=== PATIENT | female | born 1985 | race African-American/Black ===

== ENCOUNTER 2018-06-13 12:18 | Emergency (ER) | payer MEDICAID ==
[~2018-06-13] VITALS: Ht 152.4 cm; Wt 67.1 kg
[2018-06-13 12:40] VITALS: BP 106/67
--- NOTE | 2018-06-13 12:54 | Emergency Room Report ---
History of Present Illness General Chief Complaint: Pain Source: Patient (Luis Angel Nuñez) Present Illness HPI 32-year-old female patient presents ER complaining of left wrist and elbow pain status post trip and fall injury earlier this morning. Reports that she was going to run at 4 AM when she tripped and "tumbled". Denies hitting her head or loss consciousness. Reports she landed on her right shoulder, elbow, wrist, denies solution. Reports right-hand dominant. Reports pain in right wrist. Reports abrasions on right shoulder and left knee. Denies left knee swelling or pain. Reports she took an ibuprofen after injury and a Tylenol #3 two hours ago. denies fever, chest pain, shortness of breath. Reports decreased range of motion with movement of wrist. Reports able to move shoulder, reports mild pain with elbow movement. (Luis Angel Nuñez) Allergies: Coded Allergies: No Known Allergies (Unverified , 06/13/18) Patient History Past Medical History: see triage record Last Menstrual Period: 05/24/18 Now: No Reviewed Nursing Documentation: PMH: Agreed; PSxH: Agreed (Luis Angel Nuñez) Nursing Documentation-PMH Past Medical History: No Stated History (Luis Angel Nuñez) Review of Systems All Other Systems: negative except mentioned in HPI (Luis Angel Nuñez) Physical Exam Vital Signs Date Time Temp Pulse Resp B/P (MAP) Pulse Ox O2 Delivery O2 Flow Rate FiO2 06/13/18 12:38 98.3 81 18 106/67 98.2 Sp02 EP Interpretation: reviewed, normal General Appearance: well appearing, no apparent distress, alert, GCS 15, non- toxic Head: normocephalic, atraumatic Eyes: bilateral eye normal inspection, bilateral eye PERRL ENT: hearing grossly normal, normal pharynx, no angioedema, normal voice, uvula midline, moist mucus membranes Neck: full range of motion Respiratory: lungs clear, normal breath sounds, no rhonchi, no respiratory distress, no accessory muscle use, no wheezing, speaking full sentences Cardiovascular #1: regular rate, rhythm, no edema Cardiovascular #2: 2+ radial (R), 2+ radial (L) Musculoskeletal: back normal, digits/nails normal, gait/station normal, normal range of motion - right shoulder, right elbow; no laxity with varus or valgus stress of knee, non-tender, decreased range of motion - and right wrist secondary to pain, swelling, other - NVI, able to make a fist, sensation to light touch intact; deformity of right wrist; negative sulcus sign, negative skin tenting, tender - right snuffbox Neurologic: alert, oriented x3, responsive, motor strength/tone normal, sensory intact Psychiatric: mood/affect normal Skin: no rash, abrasions - right shoulder and left knee: multiple approximately 1 cm abrasions, no surrounding erythema or edema, no or drainage (Luis Angel Nuñez) Medical Decision Making PA Attestation Dr. Mejia is my supervising Physician whom patient management has been discussed with. (Luis Angel Nuñez) Diagnostic Impression: Primary Impression: Distal radius fracture, right ER Course Pt. presents to the ED c/o right upper extremity pain. Ddx considered but are not limited to fracture, sprain, strain, contusion, dislocation. No erythema, no warmth to touch, no fever, nontoxic appearing, low suspicion for septic joint. Vital signs: are WNL, pt. is afebrile Ordered X-ray and pain medication. ER COURSE Provided with pain medication and ice the ER. bacitracin applied to abrasions. No signs of infection, does not require oral antibiotics. Keep clean and dry, apply Neosporin to help reduce appearance of scars. An X-ray of the right wrist shows distal radius fracture per the preliminary reading. An X-ray of the right elbow shows no acute fracture per the preliminary reading. informed patient of results. Instructed to follow-up with primary care and get referral to bilingual customer service specialist. Thumb spica splint was applied to the right wrist and was checked afterwards by me showing good alignment and support with distal neurovascular functioning intact. Patient instructed on RICE method: rest, ice, compression, elevation. Patient instructed on rest, ice and heat. Patient instructed to be NWB Patient able to ambulate independently without difficulty. Contact information for orthopedic urgent care provided, follow-up with urgent care if unable to followup with primary care provider and get referral to bilingual customer service specialist. Followup with primary care provider. Discuss referral to ortho/pain management/ PT as needed. Discuss further imaging with MRI/CT as needed. DISCHARGE: -Rx provided for [place] for pain symptoms. SE drowsiness, do not take prior to drinking, driving, operating heavy machinery. At this time pt. is stable for d/c to home. Patient is resting comfortably, in no acute distress, nontoxic appearing, talking without difficulty. Will provide printed patient care instructions, and any necessary prescriptions. Patient instructed to follow with primary care provider in 3 - 5 days and to request further follow-up as needed. Care plan and follow up instructions have been discussed with the patient prior to discharge. Take medications as directed. Patient questions asked and answered. Patient reports understanding and agreement to treatment plan. ER precautions given, patient instructed to return to ER immediately for any new or worsening of symptoms. - Please note that this Emergency Department Report was dictated using [employer] advocate technology software, occasionally this can lead to erroneous entry secondary to interpretation by the dictation equipment. (Luis Angel Nuñez P.A.) Other X-Ray Diagnostic Results Other X-Ray Diagnostic Results #1: X-Ray ordered: right wrist # of Views/Limited Vs Complete: 3 View Indication: Pain EP Interpretation: Yes PA Xray: Interpretation reviewed, by supervising MD, and agrees with findings. Interpretation: no dislocation, no soft tissue swelling, other - distal radius fracture Impression: Other - distal radius fracture PA Scribe Text Jae Nuñez PA-C Other X-Ray Diagnostic Results #2: X-Ray ordered: right elbow # of Views/Limited Vs Complete: 3 View Indication: Pain EP Interpretation: Yes PA Xray: Interpretation reviewed, by supervising MD, and agrees with findings. Interpretation: no dislocation, no soft tissue swelling, no fractures Impression: No acute disease PA Scribe Text Jae Nuñez PA-C (Luis Angel Nuñez P.A.) Other X-Ray Diagnostic Results #1: Electronically Signed by: Scribe documentation reviewed by me and is accurate, Chandana Mejia MD Other X-Ray Diagnostic Results #2: Electronically Signed by: Scribe documentation reviewed by me and is accurate, Chandana Mejia MD Other X-Ray Diagnostic Results #3: Electronically Signed by: Scribe documentation reviewed by me and is accurate, Chandana Mejia MD (Chandana Mejia M.D.) Last Vital Signs Date Time Temp Pulse Resp B/P (MAP) Pulse Ox O2 Delivery O2 Flow Rate FiO2 06/13/18 12:38 98.3 81 18 106/67 98.2 (Luis Angel Nuñez) Disposition: HOME, SELF-CARE Condition: Stable Scripts Hydrocodone Bit/Acetaminophen 5-325* (NORCO 5-325*) 1 Each Tablet 1 TAB ORAL Q6H PRN for For Pain, #10 TAB 0 Refills Prov: Luis Angel Nuñez 06/13/18 Patient Instructions: Abrasion, [id number], Elbow Contusion, [id number], Shoulder Pain, [id number], Wrist Fracture, [id number] Additional Instructions: Patient instructed to follow up with primary care provider and discuss further referral to orthopedics. Patient instructed on RICE method: rest, ice, compression, elevation. Patient instructed to NWB. Take medications as directed. SE drowsiness, do not take medication prior to drinking, driving, operating heavy machinery. Patient questions asked and answered. ER precautions given, patient instructed to return to ER immediately for any new or worsening of symptoms. Luis Angel Nuñez Jun 13, 2018 12:54 Chandana Mejia M.D. Jun 17, 2018 17:56
[2018-06-13] MEDS ORDERED: Bacitracin Oint UD TOPIC ONE (13:00)
[2018-06-13] MEDS ORDERED: NORCO 5-325 TA1 EACH ORAL (14:07)
[2018-06-13 14:37] VITALS: BP 105/63
--- NOTE | 2018-06-13 14:46 | Diagnostic Imaging Report ---
Indications:Elbow pain Technique: Three or 4 views of the right elbow Comparison: None Findings:No evidence of joint effusion. No acute fractures. No dislocations. The joint spaces are preserved Impression: Negative
--- NOTE | 2018-06-13 14:49 | Diagnostic Imaging Report ---
Clinical Indication:Wrist pain, trauma Technique: 3 views of the right wrist Comparison: None Findings: There is a minimally displaced fracture of the anterolateral corner of the distal radius. This extends into the articular surface. No associated ulnar fracture. No carpal or metacarpal fracture demonstrated. Impression: Positive for distal radial fracture. This agrees with the conclusions scribed by the ED physician in the electronic medical record
== END 2018-06-13 14:40 | disposition home or self-care (01) ==
LOC: EMR 12:57
DX: S52.501A Unspecified fracture of the lower end of right radius, initial encounter for closed fracture (principal); S40.211A Abrasion of right shoulder, initial encounter; S80.212A Abrasion, left knee, initial encounter; W18.40XA Slipping, tripping and stumbling without falling, unspecified, initial encounter; Y93.02 Activity, running; Y92.9 Unspecified place or not applicable
CPT/HCPCS: 29125; 99284

== ENCOUNTER 2018-12-18 17:16 | Emergency (ER) | payer MEDICAID ==
[~2018-12-18] VITALS: Ht 152.4 cm; Wt 63.5 kg
[~2018-12-18 17:16] MED LIST: IBUPROFEN600 MG ORAL; NITROFURANTOIN100 M2 ORAL; NKM; NORCO 5-325 TA1 EACH ORAL; ONDANSETRON ODT4 MG BC
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
[2018-12-18 17:22] VITALS: BP 120/77
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
[2018-12-18] MEDS ORDERED: LIDODERM700 M1 TOPIC (18:18)
[2018-12-18] MEDS ORDERED: ROBAXIN-750750 MG PO (18:18)
[2018-12-18] MEDS ORDERED: IBUPROFEN600 MG ORAL (18:18)
[2018-12-18 18:36] VITALS: BP 125/80
--- NOTE | 2018-12-18 18:37 | NUR ---
ER DISCHARGE NOTE: Patient is cleared to be discharged per ERMD, pt is aox4, on room air, with stable vital signs. pt was given dc and prescription instructions, pt was able to verbalize understanding, pt id band removed without complications. pt is able to ambulate with steady gait. pt took all belongings.
== END 2018-12-18 18:37 | disposition home or self-care (01) ==
LOC: EMR 17:57
DX: S29.012A Strain of muscle and tendon of back wall of thorax, initial encounter (principal); S39.012A Strain of muscle, fascia and tendon of lower back, initial encounter; V43.52XA Car driver injured in collision with other type car in traffic accident, initial encounter; Y92.410 Unspecified street and highway as the place of occurrence of the external cause
CPT/HCPCS: 99282

== ENCOUNTER 2020-03-25 15:37 | Emergency (ER) | payer MEDICAID ==
[~2020-03-25] VITALS: Ht 160 cm; Wt 77.1 kg
[~2020-03-25 15:37] MED LIST changes: +LIDODERM700 M1 TOPIC; +ROBAXIN-750750 MG PO
--- NOTE | 2020-03-25 16:10 | NUR ---
ED Nurse Note: Pt ambulated to ED d/t vaginal discharge. Pt is 7 weeks ; states 'when I wipe, it's red-pinkish'; reports no pain or urinary problem. Pt's VSS, NAD noted. Placed on bed, will continue to monitor.
--- NOTE | 2020-03-25 16:29 | NUR ---
ED Nurse Note: US tech at bedside.
[2020-03-25 16:34] LABS: BASOPHILS % (AUTO) 1.4 % (0.0-2.0); EOSINOPHILS % (AUTO) 0.7 % (0.0-3.0); HEMATOCRIT 38.1 % (37.0-47.0); HEMOGLOBIN 11.7 G/DL (12.0-16.0); LYMPHOCYTES % (AUTO) 24.8 % (20.0-45.0); MEAN CORPUSCULAR VOLUME 95 FL (80-99); MONOCYTES % (AUTO) 11.4 % (1.0-10.0); NEUTROPHILS % (AUTO) 61.6 % (45.0-75.0); PLATELET COUNT 300 K/UL (150-450); RED BLOOD COUNT 4.02 M/UL (4.20-5.40); RED CELL DISTRIBUTION WIDTH 12.9 % (11.6-14.8); WHITE BLOOD COUNT 9.2 K/UL (4.8-10.8)
[2020-03-25 16:57] LABS: APPEARANCE,URINE SLIGHTLY CLOUDY; BILIRUBIN, URINE NEGATIVE (NEGATIVE); GLUCOSE, URINE (UA) NEGATIVE (NEGATIVE); KETONES,URINE 1+ (NEGATIVE); LEUKOCYTE ESTERASE ,URINE 1+ (NEGATIVE); NITRITE,URINE NEGATIVE (NEGATIVE); PH,URINE 5 (4.5-8.0); PROTEIN,URINE 2+ (NEGATIVE); UROBILINOGEN,URINE 1 MG/DL (0.0-1.0)
[2020-03-25 16:59] LABS: COLOR,URINE YELLOW
[2020-03-25 17:00] LABS: ANION GAP 10 mmol/L (5-15); BLOOD UREA NITROGEN 5 mg/dL (7-18); CALCIUM 8.8 MG/DL (8.5-10.1); CARBON DIOXIDE 28 MMOL/L (21-32); CHLORIDE 104 MMOL/L (98-107); CREATININE 1.1 MG/DL (0.55-1.30); POTASSIUM 3.4 MMOL/L (3.5-5.1); SODIUM 142 MMOL/L (136-145)
[2020-03-25 17:05] LABS: ALANINE AMINOTRANSFERASE 31 U/L (12-78); ALBUMIN 3.5 G/DL (3.4-5.0); ALBUMIN/GLOBULIN RATIO 0.9 (1.0-2.7); ALKALINE PHOSPHATASE 97 U/L (46-116); ASPARTATE AMINO TRANSFERASE 24 U/L (15-37); BILIRUBIN,TOTAL 0.3 MG/DL (0.2-1.0)
--- NOTE | 2020-03-25 17:34 | Diagnostic Imaging Report ---
EXAM: US First Trimester , Transabdominal and Transvaginal CLINICAL HISTORY: PAIN TECHNIQUE: Real-time transabdominal and transvaginal obstetrical ultrasound of the maternal pelvis and a first trimester with image documentation. Transvaginal imaging was used for better evaluation of the fetus and adnexa. COMPARISON: No relevant prior studies available. FINDINGS: Gestation: No IUP. Placenta/amniotic fluid: Cannot be adequately evaluated due to the early gestational age. Uterus/cervix: Retroflexed uterus. 1 cm hypoechoic focus to the posterior uterine corpus. Favor small fibroid, potentially chronic. Ovaries: Unremarkable. No mass. Free fluid: No free fluid. IMPRESSION: No IUP. Cannot exclude ectopic , but no suspicious adnexal mass. Retroflexed uterus. 1 cm hypoechoic focus to the posterior uterine corpus. Favor fibroid.
--- NOTE | 2020-03-25 17:46 | Emergency Room Report ---
History of Present Illness General Chief Complaint: Complications Source: Patient Present Illness HPI 34-year-old female who is A1 and claims to be 7 weeks here complaining of 1 day of vaginal spotting. Denies any abdominal pain or cramping. Reported vaginal spotting started after she was being sexually active. Denies any profuse amount of bleeding or clotting. Denies any syncope , nausea vomiting, headache and dizziness. Reports that she just found out that she is a week ago. Denies any alcohol intake, marijuana use or smoking. Is not taking any medication. Has not started vitamins either. Patient has a first PNEUMATIC DRUM SANDER visit next week. Patient stable, afebrile, and in no distress. Allergies: Coded Allergies: No Known Allergies (Unverified , 06/13/18) COVID-19 Screening Contact w/high risk pt: No Recent Travel to affected area: No Experienced COVID-19 symptoms?: No COVID-19 Testing performed PETROLEUM INSPECTOR SUPERVISOR: No Patient History Past Medical History: see triage record Past Surgical History: none Pertinent Family History: none Last Menstrual Period: 02/04/20 Now: Yes : 5 Para: 2 Immunizations: UTD Reviewed Nursing Documentation: PMH: Agreed; PSxH: Agreed Nursing Documentation-PMH Past Medical History: No Stated History Review of Systems All Other Systems: negative except mentioned in HPI Physical Exam Vital Signs Date Time Temp Pulse Resp B/P (MAP) Pulse Ox O2 Delivery O2 Flow Rate FiO2 03/25/20 16:00 98.2 92 15 111/68 (82) 98 Room Air Sp02 EP Interpretation: reviewed, normal General Appearance: no apparent distress, alert, GCS 15, non-toxic Head: normocephalic, atraumatic Eyes: bilateral eye normal inspection, bilateral eye PERRL ENT: hearing grossly normal, normal pharynx, no angioedema, normal voice Neck: full range of motion, supple/symm/no masses Respiratory: chest non-tender, lungs clear, normal breath sounds, speaking full sentences Cardiovascular #1: regular rate, rhythm, no edema Gastrointestinal: normal bowel sounds, non tender, soft, non-distended, no guarding, no rebound Rectal: deferred Genitourinary: no CVA tenderness Musculoskeletal: back normal Neurologic: alert, motor strength/tone normal, oriented x3, sensory intact, responsive, speech normal Psychiatric: judgement/insight normal, memory normal, mood/affect normal, no suicidal/homicidal ideation Skin: no rash Lymphatic: no adenopathy Medical Decision Making PA Attestation All my diagnosis and treatment plans were reviewed ad discussed with my supervising physician Dr. Ibarra Diagnostic Impression: Primary Impression: Spotting during in first trimester Additional Impression: UTI (urinary tract infection) during ER Course 34-year-old female who is A1 and claims to be 7 weeks here complaining of 1 day of vaginal spotting. Denies any abdominal pain or cramping. Reported vaginal spotting started after she was being sexually active. Denies any profuse amount of bleeding or clotting. Denies any syncope , nausea vomiting, headache and dizziness. Reports that she just found out that she is a week ago. Denies any alcohol intake, marijuana use or smoking. Is not taking any medication. Has not started vitamins either. Patient has a first PNEUMATIC DRUM SANDER visit next week. Patient stable, afebrile, and in no distress. Ddx considered but are not limited to: Spotting during , ectopic , abdominal pain during , threatened , spontaneous Vital signs: are WNL, pt. is afebrile H&PE are most consistent with: Spotting during , UTI urine ORDERS: CBC, CMP, UA, beta-hCG, type and screen, OB ultrasound, vitamins, Keflex ED INTERVENTIONS: None required at this time. DISCHARGE: At this time pt. is stable for d/c to home. Will provide printed patient care instructions, and any necessary prescriptions. Care plan and follow up instructions have been discussed with the patient prior to discharge. Patient to follow-up with PNEUMATIC DRUM SANDER in 48 to 72 hours medical history as directed , present symptoms return to the emergency room CT/MRI/US Diagnostic Results CT/MRI/US Diagnostic Results : Imaging Test Ordered: OB US Impression IMPRESSION: No IUP. Cannot exclude ectopic , but no suspicious adnexal mass. Retroflexed uterus. 1 cm hypoechoic focus to the posterior uterine corpus. Favor fibroid. Last Vital Signs Date Time Temp Pulse Resp B/P (MAP) Pulse Ox O2 Delivery O2 Flow Rate FiO2 03/25/20 16:00 98.2 92 15 111/68 (82) 98 Room Air Disposition: HOME, SELF-CARE Condition: Stable Scripts Vits W-Ca,Fe,Fa(<1MG) ( VITAMINS) 1 Each Tablet 1 EACH PO DAILY, #30 TAB Prov: Bucky Olivier 03/25/20 Cephalexin* (KEFLEX*) 500 Mg Capsule 500 MG ORAL EVERY 12 HOURS for 7 Days, #14 CAP 0 Refills Prov: Bucky Olivier 03/25/20 Patient Instructions: Urinary Tract Infection, [id number], Vaginal Bleeding During , First Trimester Additional Instructions: Take medication as directed, follow-up with PNEUMATIC DRUM SANDER, if worsening symptoms return to the emergency room Bucky Olivier Mar 25, 2020 17:46
[2020-03-25] MEDS ORDERED: PRENATAL VITAM1 EACH PO (17:49)
[2020-03-25] MEDS ORDERED: CEPHALEXIN500 MG ORAL (17:49)
[2020-03-25 18:00] VITALS: BP 111/68
--- NOTE | 2020-03-25 18:00 | NUR ---
ER DISCHARGE NOTE: Patient is cleared to be discharged per ERPA, pt is aox4, on room air, with stable vital signs. pt was given dc and prescription instructions, pt was able to verbalize understanding, pt id band and iv site removed without complications. pt is able to ambulate with steady gait. pt took all belongings.
== END 2020-03-25 18:00 | disposition home or self-care (01) ==
LOC: EMR 17:43
DX: O26.851 Spotting complicating pregnancy, first trimester (principal); O23.41 Unspecified infection of urinary tract in pregnancy, first trimester; Z3A.01 Less than 8 weeks gestation of pregnancy
CPT/HCPCS: 36415; 76801; 76817; 80053; 81003; 84702; 84703; 85025; 86850; 86900; 86901; 87086; Z7502; 99284

== ENCOUNTER 2020-05-31 13:19 | Emergency (ER) | payer MEDICAID ==
[~2020-05-31] VITALS: Ht 152.4 cm; Wt 77.1 kg
[~2020-05-31 13:19] MED LIST changes: +CEPHALEXIN500 MG ORAL; +PRENATAL VITAM1 EACH PO
[2020-05-31 13:23] VITALS: BP 112/75
--- NOTE | 2020-05-31 13:30 | NUR ---
ED Nurse Note: patient walked into ED from home c/o vainal discharge and discomfort, reports white foul discharge. patient also reports concern for exposure to STD. patient is alert awake x4 ambulatory breathing unlabored and even speaking in full sentences.
--- NOTE | 2020-05-31 13:40 | NUR ---
ED Nurse Note: urine sent to lab
[2020-05-31] MEDS ORDERED: Lidocaine 1% MPF 10mg/ml 5ml INJ ONE (13:45)
[2020-05-31] MEDS ORDERED: Azithromycin 250mg tab ORAL ONE (13:45)
[2020-05-31 13:56] LABS: APPEARANCE,URINE CLEAR; BILIRUBIN, URINE NEGATIVE (NEGATIVE); COLOR,URINE PALE YELLOW; GLUCOSE, URINE (UA) NEGATIVE (NEGATIVE); KETONES,URINE 1+ (NEGATIVE); LEUKOCYTE ESTERASE ,URINE NEGATIVE (NEGATIVE); NITRITE,URINE NEGATIVE (NEGATIVE); PH,URINE 5 (4.5-8.0); PROTEIN,URINE NEGATIVE (NEGATIVE); UROBILINOGEN,URINE NORMAL MG/DL (0.0-1.0)
--- NOTE | 2020-05-31 14:22 | Emergency Room Report ---
History of Present Illness General Chief Complaint: Vaginal Source: Patient Present Illness HPI 34 YO female presents to the ED c/o contact with possible STI. Pt. reports unprotected intercourse and then onset of thick white vaginal d/c 3 days after .Pt. denies pain. She Denies and states she had a miscarriage two months ago. Pt. is requesting STD treatment. She denies recent abx use. She denies dysuria, hematuria or frequency. Pt. denies abdominal pain or tenderness. She reports fish-like odor to vaginal d/c. Pt. denies N/V/F/C. She denies genital lesions, sores or rashes. Pt. also states she is prone to yeast infections after taking abx. Pt. denies adnexal pain or tenderness. She denies swollen tender lymph nodes or joint pain. Allergies: Coded Allergies: No Known Allergies (Unverified , 06/13/18) COVID-19 Screening Contact w/high risk pt: No Recent Travel to affected area: No Experienced COVID-19 symptoms?: No COVID-19 Testing performed MARKET RISK SPECIALIST: No Patient History Past Medical History: see triage record Past Surgical History: none Pertinent Family History: none Last Menstrual Period: 05/10 Now: No Reviewed Nursing Documentation: PMH: Agreed; PSxH: Agreed Nursing Documentation-PMH Past Medical History: No Stated History Review of Systems All Other Systems: negative except mentioned in HPI Physical Exam Vital Signs Date Time Temp Pulse Resp B/P (MAP) Pulse Ox O2 Delivery O2 Flow Rate FiO2 05/31/20 13:23 98.6 91 16 112/75 98 Room Air Sp02 EP Interpretation: reviewed, normal General Appearance: no apparent distress, alert, GCS 15, non-toxic Head: normocephalic, atraumatic Eyes: bilateral eye normal inspection, bilateral eye PERRL ENT: hearing grossly normal, normal voice Neck: full range of motion Respiratory: chest non-tender, lungs clear, normal breath sounds, speaking full sentences Cardiovascular #1: regular rate, rhythm Gastrointestinal: normal bowel sounds, non tender, soft Rectal: deferred Genitourinary: normal inspection, no CVA tenderness, deferred - Pelvic exam deferred by pt. Musculoskeletal: back normal, normal range of motion, gait/station normal, non- tender Neurologic: alert, oriented x3, sensory intact, responsive, speech normal Psychiatric: judgement/insight normal Lymphatic: no adenopathy Medical Decision Making PA Attestation Dr. Conrad Is my supervising Physician whom patient management has been discussed with. Diagnostic Impression: Primary Impression: Vaginitis Qualified Codes: N76.0 - Acute vaginitis Additional Impression: Contact with or exposure to venereal diseases ER Course 34 YO female presents to the ED c/o contact with possible STI. Pt. reports unprotected intercourse and then onset of thick white vaginal d/c 3 days after .Pt. denies pain. She Denies and states she had a miscarriage two months ago. Pt. is requesting STD treatment. She denies recent abx use. She denies dysuria, hematuria or frequency. Pt. denies abdominal pain or tenderness. She reports fish-like odor to vaginal d/c. Pt. denies N/V/F/C. She denies genital lesions, sores or rashes. Pt. also states she is prone to yeast infections after taking abx. Pt. denies adnexal pain or tenderness. She denies swollen tender lymph nodes or joint pain. Ddx considered but are not limited to UTi , STI, G & C, trichomonas, Vaginitis , cervicitis, gland cyst or cellulitis. Vital signs: are WNL, pt. is afebrile H&PE are most consistent with vaginitis and contact with or exposure to STD. ORDERS: - UA: unremarkable -Urine : ED INTERVENTIONS: -250mg Rocephin IM -1g Azithromycin. ( pt. vomited) Urine preg neg so will give doxy. d/w pt. to wait until all antibiotics are completed before taking Diflucan DISCHARGE: At this time pt. is stable for d/c to home. Will provide printed patient care instructions, and any necessary prescriptions. Care plan and follow up instructions have been discussed with the patient prior to discharge. Labs Test 05/31/20 13:28 Urine Color Pale yellow Urine Appearance Clear Urine pH 5 (4.5-8.0) Urine Specific [place] 1.015 (1.005-1.035) Urine Protein Negative (NEGATIVE) Urine Glucose (UA) Negative (NEGATIVE) Urine Ketones 1+ (NEGATIVE) Urine Blood 4+ (NEGATIVE) Urine Nitrite Negative (NEGATIVE) Urine Bilirubin Negative (NEGATIVE) Urine Urobilinogen Normal MG/DL (0.0-1.0) Urine Leukocyte Esterase Negative (NEGATIVE) Urine RBC 5-10 /HPF (0 - 2) Urine WBC 0-2 /HPF (0 - 2) Urine Squamous Epithelial Cells Few /LPF (NONE/OCC) Urine Bacteria Few /HPF (NONE) Last Vital Signs Date Time Temp Pulse Resp B/P (MAP) Pulse Ox O2 Delivery O2 Flow Rate FiO2 05/31/20 13:23 98.6 91 16 112/75 (87) 98 Room Air Disposition: HOME, SELF-CARE Condition: Stable Scripts Doxycycline Hyclate* (VIBRAMYCIN*) 100 Mg Capsule 100 MG ORAL EVERY 12 HOURS for 7 Days, #14 CAP 0 Refills Prov: Fiordaliza Self 05/31/20 Fluconazole (DIFLUCAN) 150 Mg Tablet 150 MG PO ONCE, #1 TAB Prov: Fiordaliza Self 05/31/20 Metronidazole* (FLAGYL*) 500 Mg Tablet 500 MG ORAL BID for 7 Days, #14 TAB Prov: Fiordaliza Self 05/31/20 Referrals: [facility]ERR[facility] (PCP) Patient Instructions: Vaginitis, [id number] Additional Instructions: Take medications as directed. Follow up with a Primary Care Provider in 3-5 days, even if your symptoms have resolved. Return sooner to ED if new symptoms occur, or current symptoms become worse. - Please note that this Emergency Department Report was dictated using [employer] jewelry technology software, occasionally this can lead to erroneous entry secondary to interpretation by the dictation equipment. Fiordaliza Self May 31, 2020 14:22
[2020-05-31 14:30] VITALS: BP 112/75
[2020-05-31] MEDS ORDERED: METRONIDAZOLE500 MG ORAL (14:32)
[2020-05-31] MEDS ORDERED: DIFLUCAN150 MG PO (14:32)
[2020-05-31] MEDS ORDERED: VIBRAMYCIN100 MG ORAL (14:48)
--- NOTE | 2020-05-31 15:00 | NUR ---
ER DISCHARGE NOTE: Patient is cleared to be discharged per COURTNEY RUIZ, pt is aox4, on room air, with stable vital signs. pt was given dc and prescription instructions, pt was able to verbalize understanding, pt id band removed without complications. pt is able to ambulate with steady gait. pt took all belongings.
[2020-05-31 15:26] VITALS: BP 112/75
== END 2020-05-31 15:00 | disposition home or self-care (01) ==
LOC: EMR 13:48
DX: N76.0 Acute vaginitis (principal); Z20.2 Contact with and (suspected) exposure to infections with a predominantly sexual mode of transmission
CPT/HCPCS: 81003; 81025; 96372; J0696; Q0144; Z7502; 99283

== ENCOUNTER 2020-07-21 21:49 | Emergency (ER) | payer MEDICAID ==
[~2020-07-21] VITALS: Ht 152.4 cm; Wt 81.6 kg
[~2020-07-21 21:49] MED LIST changes: +DIFLUCAN150 MG PO; +METRONIDAZOLE500 MG ORAL; +VIBRAMYCIN100 MG ORAL
--- NOTE | 2020-07-21 22:03 | Emergency Room Report ---
History of Present Illness General Chief Complaint: Lower Extremity Injury Source: Patient Present Illness [facility] This is a 34-year-old female with no past medical history. She presents with chief complaint of right foot pain. She injured her foot 3 weeks ago. She says she was walking and misstepped on the curb and hit her on the foot. Since then is been hurting some. Now that she is on the foot more with walking it hurts more. Pain is to the bottom and the dorsum of the foot. No ankle pain. Pain is 7 out of 10. Worse with walking. Better with rest. No other injury. Allergies: Coded Allergies: No Known Allergies (Unverified , 06/13/18) COVID-19 Screening Contact w/high risk pt: No Recent Travel to affected area: No Experienced COVID-19 symptoms?: No COVID-19 Testing performed HEALTHCARE CORPORATE ACCOUNT DIRECTOR: No Patient History Past Medical History: see triage record, old chart reviewed Past Surgical History: none Pertinent Family History: none Social History: Denies: smoking Last Menstrual Period: 05/2020 Now: No Immunizations: other Reviewed Nursing Documentation: PMH: Agreed; PSxH: Agreed Nursing Documentation-PMH Past Medical History: No Stated History Review of Systems Eye: Denies: eye pain, blurred vision ENT: Denies: ear pain, nose congestion, throat swelling Respiratory: Denies: cough, shortness of breath Cardiovascular: Denies: chest pain, palpitations Gastrointestinal: Denies: abdominal pain, diarrhea, nausea, vomiting Musculoskeletal: Reports: joint pain; Denies: back pain Skin: Denies: rash Neurological: Denies: headache, numbness Endocrine: Denies: increased thirst, increased urine Hematologic/Lymphatic: Denies: easy bruising All Other Systems: negative except mentioned in HPI Physical Exam Vital Signs Date Time Temp Pulse Resp B/P (MAP) Pulse Ox O2 Delivery O2 Flow Rate FiO2 07/21/20 21:54 98.4 89 16 104/66 (79) 98 Room Air Vitals normal Sp02 EP Interpretation: reviewed, normal General Appearance: well appearing, no apparent distress, alert Head: normocephalic, atraumatic Eyes: bilateral eye PERRL, bilateral eye EOMI ENT: hearing grossly normal, normal pharynx Neck: full range of motion, supple, no meningismus Respiratory: chest non-tender, lungs clear, normal breath sounds Cardiovascular #1: regular rate, rhythm, no murmur Gastrointestinal: normal bowel sounds, non tender, no mass, no organomegaly, no bruit, non-distended Musculoskeletal: back normal, normal range of motion, gait/station normal, other - Right foot: Tenderness to the arch and dorsum of the midfoot. Ankle is nontender. Pulse normal. Psychiatric: mood/affect normal Medical Decision Making Diagnostic Impression: Primary Impression: Right foot sprain Qualified Codes: S93.601A - Unspecified sprain of right foot, initial encounter ER Course Patient presents with injury to the foot. No fracture or dislocation. Will discharge home. Other X-Ray Diagnostic Results Other X-Ray Diagnostic Results : X-Ray ordered: Right foot x-rays # of Views/Limited Vs Complete: 3 View Indication: Pain EP Interpretation: Yes Interpretation: no dislocation, no soft tissue swelling, no fractures Impression: No acute disease Electronically Signed by: Jay Elias MD Last Vital Signs Date Time Temp Pulse Resp B/P (MAP) Pulse Ox O2 Delivery O2 Flow Rate FiO2 07/21/20 21:54 98.4 89 16 104/66 (79) 98 Room Air Status: improved Disposition: HOME, SELF-CARE Condition: Stable Scripts Ibuprofen* (MOTRIN*) 600 Mg Tablet 600 MG ORAL Q6H PRN for For Pain, #30 TAB 0 Refills Prov: Jay Elias MD 07/21/20 Patient Instructions: Foot Sprain Additional Instructions: Elevate foot. Follow-up with your doctor in 7 days. If symptoms continue, may need an MRI. Return if worse. Jay Elias MD Jul 21, 2020 22:03
[2020-07-21] MEDS ORDERED: IBUPROFEN600 M1 ORAL (22:12)
[2020-07-21 22:20] VITALS: BP 103/70
--- NOTE | 2020-07-22 13:37 | Diagnostic Imaging Report ---
INDICATION: Foot pain TECHNIQUE: XRAY Foot Complete R Multiple views of the None were obtained COMPARISON: None FINDINGS: There is no acute fracture or dislocation. Joint spaces are maintained. No acute soft tissue abnormality. IMPRESSION: No acute fracture or dislocation.
== END 2020-07-21 22:20 | disposition home or self-care (01) ==
LOC: EMR 22:09
DX: S93.601A Unspecified sprain of right foot, initial encounter (principal); W22.8XXA Striking against or struck by other objects, initial encounter; Y92.9 Unspecified place or not applicable
CPT/HCPCS: 73630; Z7502; 99283

== ENCOUNTER 2020-08-15 06:16 | Emergency (ER) | payer MEDICAID ==
[~2020-08-15] VITALS: Ht 152.4 cm; Wt 75.3 kg
[~2020-08-15 06:16] MED LIST changes: +IBUPROFEN600 M1 ORAL
[2020-08-15 06:25] VITALS: BP 118/66
--- NOTE | 2020-08-15 06:25 | NUR ---
ED Nurse Note: Patient walked into ED from home for concern with STI. She states she had a condom break during sexual intercourse two days ago. She denies any symptoms or pain at this time. No vaginal discharge, dysuria noted. AAOX4, breathing is normal and unlabored.
[2020-08-15] MEDS ORDERED: Lidocaine 1% MPF 10mg/ml 5ml INJ ONE (06:45)
[2020-08-15] MEDS ORDERED: Azithromycin 250mg tab ORAL ONE (06:45)
[2020-08-15] MEDS ORDERED: Bicillin LA 1.2MMU/2ML SYR IM ONE (06:45)
[2020-08-15 06:59] LABS: APPEARANCE,URINE CLEAR; BILIRUBIN, URINE NEGATIVE (NEGATIVE); COLOR,URINE PALE YELLOW; GLUCOSE, URINE (UA) NEGATIVE (NEGATIVE); KETONES,URINE NEGATIVE (NEGATIVE); LEUKOCYTE ESTERASE ,URINE NEGATIVE (NEGATIVE); NITRITE,URINE NEGATIVE (NEGATIVE); PH,URINE 6.5 (4.5-8.0); PROTEIN,URINE NEGATIVE (NEGATIVE); UROBILINOGEN,URINE NORMAL MG/DL (0.0-1.0)
--- NOTE | 2020-08-15 07:10 | NUR ---
ED Nurse Note: report received from lucita duncan. pt seen in bed awake,no acute distress is noted at this time. will continue to monitor
[2020-08-15 07:27] VITALS: BP 120/70
--- NOTE | 2020-08-15 07:27 | NUR ---
ER DISCHARGE NOTE: Patient is cleared to be discharged per ERMD, pt is aox4, on room air, with stable vital signs. pt was given dc instructions, pt was able to verbalize understanding, pt id band removed without complications. pt is able to ambulate with steady gait. pt took all belongings.
--- NOTE | 2020-08-15 08:42 | Emergency Room Report ---
History of Present Illness General Chief Complaint: General Complaint Source: Patient Present Illness HPI 34-year-old female presents the ED for evaluation. States that she had unprotected sex a few days ago and the condom broke. States she is concerned about STDs. Does not have any symptoms at this time. Denies any discharge or dysuria. Denies any rash. No other aggravating relieving factors. Denies any other associated symptoms Allergies: Coded Allergies: No Known Allergies (Unverified , 06/13/18) COVID-19 Screening Contact w/high risk pt: No Recent Travel to affected area: No Experienced COVID-19 symptoms?: No COVID-19 Testing performed TILER'S ASSISTANT: No Patient History Past Medical History: none Past Surgical History: none Pertinent Family History: none Social History: Denies: smoking, alcohol use, drug use Last Menstrual Period: 07/13/2020 Now: No : 4 Para: 2 Immunizations: UTD Reviewed Nursing Documentation: PMH: Agreed; PSxH: Agreed Nursing Documentation-PMH Past Medical History: No Stated History Review of Systems All Other Systems: negative except mentioned in HPI Physical Exam Vital Signs Date Time Temp Pulse Resp B/P (MAP) Pulse Ox O2 Delivery O2 Flow Rate FiO2 08/15/20 06:17 98.2 80 18 118/66 (83) 98 Room Air Sp02 EP Interpretation: reviewed, normal General Appearance: no apparent distress, alert, GCS 15, non-toxic Head: normocephalic, atraumatic Eyes: bilateral eye normal inspection, bilateral eye PERRL ENT: hearing grossly normal, normal pharynx, no angioedema, normal voice Neck: full range of motion, supple/symm/no masses Respiratory: chest non-tender, lungs clear, normal breath sounds, speaking full sentences Cardiovascular #1: regular rate, rhythm, no edema Cardiovascular #2: 2+ carotid (R), 2+ carotid (L), 2+ radial (R), 2+ radial (L), 2+ dorsalis pedis (R), 2+ dorsalis pedis (L) Gastrointestinal: normal bowel sounds, non tender, soft, non-distended, no guarding, no rebound Rectal: deferred Genitourinary: normal inspection, no CVA tenderness Musculoskeletal: back normal, normal range of motion, gait/station normal, non- tender Neurologic: alert, motor strength/tone normal, oriented x3, sensory intact, responsive, speech normal Psychiatric: judgement/insight normal, memory normal, mood/affect normal, no suicidal/homicidal ideation Reflexes: 3+ bicep (R), 3+ bicep (L), 3+ tricep (R), 3+ tricep (L), 3+ knee (R), 3+ knee (L) Lymphatic: no adenopathy Medical Decision Making Diagnostic Impression: Primary Impression: Encounter for assessment of STD exposure ER Course Hspital Course 34-year-old female presents for unprotected sex. Concern for STI Differential diagnoses include: trichimonas, gonorrhea, chlamydia Clinical course Patient placed on stretcher. After initial history physical exam reveals a female in no acute distress. Physical exam unremarkable. I ordered UA UA shows no signs UTI. Discussed findings with patient. We will treat empirically for gonorrhea/chlamydia, syphilis Given azithromycin/Rocephin in ED. Given pen G in ED at safe for discharge and close outpatient follow-up. I will provide referrals for STD testing Diagnosis -encounter for assessment of STD exposure Stable and discharged home. Instructed to followup with PMD. Return to ED if symptoms recur or worsen Laboratory Tests Test 08/15/20 06:30 Urine Color Pale yellow Urine Appearance Clear Urine pH 6.5 (4.5-8.0) Urine Specific [place] 1.010 (1.005-1.035) Urine Protein Negative (NEGATIVE) Urine Glucose (UA) Negative (NEGATIVE) Urine Ketones Negative (NEGATIVE) Urine Blood 3+ (NEGATIVE) H Urine Nitrite Negative (NEGATIVE) Urine Bilirubin Negative (NEGATIVE) Urine Urobilinogen Normal MG/DL (0.0-1.0) Urine Leukocyte Esterase Negative (NEGATIVE) Urine RBC 2-4 /HPF (0 - 2) H Urine WBC 0 /HPF (0 - 2) Urine Squamous Epithelial Cells Occasional /LPF Urine Bacteria None /HPF (NONE) Urine HCG, Qualitative Negative (NEGATIVE) Last Vital Signs Date Time Temp Pulse Resp B/P (MAP) Pulse Ox O2 Delivery O2 Flow Rate FiO2 08/15/20 07:27 98.0 84 16 120/70 99 Room Air Status: improved Disposition: HOME, SELF-CARE Condition: Stable Referrals: [facility] Patient Instructions: Sexually Transmitted Disease, [id number] Luis Weiner MD Aug 15, 2020 08:42
== END 2020-08-15 07:27 | disposition home or self-care (01) ==
LOC: EMR 06:40
DX: Z20.2 Contact with and (suspected) exposure to infections with a predominantly sexual mode of transmission (principal)
CPT/HCPCS: 81003; 81025; 96372; J0561; J0696; Q0144; Z7502; 99283

== ENCOUNTER 2020-09-22 05:13 | Emergency (ER) | payer MEDICAID ==
[~2020-09-22] VITALS: Ht 152.4 cm; Wt 77.1 kg
[2020-09-22] MEDS ORDERED: CLOTRIMAZOLE VA21 GM VAGIN (05:44)
[2020-09-22] MEDS ORDERED: Lidocaine 1% MPF 10mg/ml 5ml INJ ONE (05:45)
[2020-09-22] MEDS ORDERED: Azithromycin 250mg tab ORAL ONE (05:45)
--- NOTE | 2020-09-22 05:52 | Emergency Room Report ---
History of Present Illness General Chief Complaint: Female Urogenital Problems Source: Patient Present Illness HPI 34-year-old female here for concern for STD exposure and possible yeast infection. She recently had a positive home test and is an estimated 8 weeks by last menstrual period. Patient says "I have a yeast infection. I know what they are like. I have had them before." Says that she has had a small amount of thick white vaginal discharge. She is also concerned that she may have been exposed to an STD. She had sexual intercourse 2 days ago and says that the condom broke. She says "I do not know if the other karson was cheating, but I just want to be sure." Does not know whether the partner has tested positive for STD. At this time denies headaches, vision changes, fevers, chills, chest pain, palpitation, shortness of breath, back pain, abdominal pain, nausea, vomiting, diarrhea, dysuria, vaginal bleeding. Allergies: Coded Allergies: No Known Allergies (Unverified , 06/13/18) COVID-19 Screening Contact w/high risk pt: No Recent Travel to affected area: No Experienced COVID-19 symptoms?: No COVID-19 Testing performed REAL ESTATE ADMINISTRATOR: No Patient History Last Menstrual Period: na Now: Yes : 4 Nursing Documentation-[facility] Past Medical History: No Stated History Review of Systems All Other Systems: negative except mentioned in HPI Physical Exam Vital Signs Date Time Temp Pulse Resp B/P (MAP) Pulse Ox O2 Delivery O2 Flow Rate FiO2 09/22/20 05:18 98.4 82 16 114/68 (83) 98 Room Air Sp02 EP Interpretation: reviewed, normal General Appearance: no apparent distress, alert, non-toxic Head: normocephalic, atraumatic Eyes: bilateral eye normal inspection, bilateral eye PERRL ENT: hearing grossly normal, normal pharynx, no angioedema, normal voice Neck: full range of motion, supple/symm/no masses Respiratory: chest non-tender, lungs clear, normal breath sounds, speaking full sentences Cardiovascular #1: regular rate, rhythm, no edema Cardiovascular #2: 2+ carotid (R), 2+ carotid (L), 2+ radial (R), 2+ radial (L), 2+ dorsalis pedis (R), 2+ dorsalis pedis (L) Gastrointestinal: normal bowel sounds, non tender, soft, non-distended, no guarding, no rebound Rectal: deferred Genitourinary: normal inspection, no CVA tenderness Musculoskeletal: back normal, normal range of motion, gait/station normal, non- tender Neurologic: alert, motor strength/tone normal, oriented x3, sensory intact, responsive, speech normal Psychiatric: judgement/insight normal, memory normal, mood/affect normal, no suicidal/homicidal ideation Lymphatic: no adenopathy Medical Decision Making Diagnostic Impression: Primary Impression: Candidiasis of genitalia in female Additional Impressions: STD exposure First trimester ER Course Laboratory Tests Test 09/22/20 05:45 White Blood Count 12.7 K/UL (4.8-10.8) H Red Blood Count 3.89 M/UL (4.20-5.40) L Hemoglobin 11.8 G/DL (12.0-16.0) L Hematocrit 34.9 % (37.0-47.0) L Mean Corpuscular Volume 90 FL (80-99) Mean Corpuscular Hemoglobin 30.2 PG (27.0-31.0) Mean Corpuscular Hemoglobin Concent 33.7 G/DL (32.0-36.0) Red Cell Distribution Width 13.3 % (11.6-14.8) Platelet Count 285 K/UL (150-450) Mean Platelet Volume 8.7 FL (6.5-10.1) Neutrophils (%) (Auto) 74.7 % (45.0-75.0) Lymphocytes (%) (Auto) 16.5 % (20.0-45.0) L Monocytes (%) (Auto) 7.9 % (1.0-10.0) Eosinophils (%) (Auto) 0.2 % (0.0-3.0) Basophils (%) (Auto) 0.8 % (0.0-2.0) Sodium Level Pending Potassium Level Pending Chloride Level Pending Carbon Dioxide Level Pending Blood Urea Nitrogen Pending Creatinine Pending Estimated Glomerular Filtration Rate Pending Glucose Level Pending Calcium Level Pending Total Bilirubin Pending Aspartate Amino Transferase (AST) Pending Alanine Aminotransferase (ALT) Pending Alkaline Phosphatase Pending Total Protein Pending Albumin Pending Globulin Pending Lipase Pending Human Chorionic Gonadotropin, Quant Pending 34-year-old female approximately 2 weeks by last menstrual period here with worry for possible exposure to STD. She was hemodynamically stable and neurovascular intact in the emergency department. Refused pelvic exam. She had no abdominal pain whatsoever and otherwise had normal physical examination. Has not had any care yet but does have an ACCOUNTS PAYABLE LEAD physician. She said that she was "sure that I have a yeast infection" that she has had been multiple times before with similar discharge. She was given Rocephin and azithromycin in the emergency department for STD coverage. She was also given a prescription for topical clotrimazole to use for 1 week. Currently awaiting remaining laboratory tests. Signed out to oncoming physician Dr. Weiner. Last Vital Signs Date Time Temp Pulse Resp B/P (MAP) Pulse Ox O2 Delivery O2 Flow Rate FiO2 09/22/20 05:18 98.4 82 16 114/68 (83) 98 Room Air Scripts Clotrimazole (Clotrimazole 3) 21 Gm Cream.appl 1 APPL VAGIN BEDTIME for 7 Days, GM Prov: Miah Jeffery M.D. 09/22/20 [facility]: [facility] Patient Instructions: Vaginal Yeast Infection, Adult Miah Jeffery M.D. Sep 22, 2020 05:52
[2020-09-22 06:08] LABS: BASOPHILS % (AUTO) 0.8 % (0.0-2.0); EOSINOPHILS % (AUTO) 0.2 % (0.0-3.0); HEMATOCRIT 34.9 % (37.0-47.0); HEMOGLOBIN 11.8 G/DL (12.0-16.0); LYMPHOCYTES % (AUTO) 16.5 % (20.0-45.0); MEAN CORPUSCULAR VOLUME 90 FL (80-99); MONOCYTES % (AUTO) 7.9 % (1.0-10.0); NEUTROPHILS % (AUTO) 74.7 % (45.0-75.0); PLATELET COUNT 285 K/UL (150-450); RED BLOOD COUNT 3.89 M/UL (4.20-5.40); RED CELL DISTRIBUTION WIDTH 13.3 % (11.6-14.8); WHITE BLOOD COUNT 12.7 K/UL (4.8-10.8)
[2020-09-22 06:09] VITALS: BP 114/68
[2020-09-22 06:09] LABS: ANION GAP 6 mmol/L (5-15); BLOOD UREA NITROGEN 7 mg/dL (7-18); CALCIUM 8.6 MG/DL (8.5-10.1); CARBON DIOXIDE 29 MMOL/L (21-32); CHLORIDE 104 MMOL/L (98-107); CREATININE 0.8 MG/DL (0.55-1.30); POTASSIUM 3.8 MMOL/L (3.5-5.1); SODIUM 139 MMOL/L (136-145)
[2020-09-22 06:14] LABS: ALANINE AMINOTRANSFERASE 18 U/L (12-78); ALBUMIN 3.2 G/DL (3.4-5.0); ALBUMIN/GLOBULIN RATIO 0.8 (1.0-2.7); ALKALINE PHOSPHATASE 105 U/L (46-116); ASPARTATE AMINO TRANSFERASE 21 U/L (15-37); BILIRUBIN,TOTAL 0.1 MG/DL (0.2-1.0)
[2020-09-22 07:05] VITALS: BP 114/68
[2020-09-22 07:16] LABS: APPEARANCE,URINE SLIGHTLY CLOUDY; BILIRUBIN, URINE NEGATIVE (NEGATIVE); COLOR,URINE PALE YELLOW; GLUCOSE, URINE (UA) NEGATIVE (NEGATIVE); KETONES,URINE NEGATIVE (NEGATIVE); LEUKOCYTE ESTERASE ,URINE 2+ (NEGATIVE); NITRITE,URINE NEGATIVE (NEGATIVE); PH,URINE 8 (4.5-8.0); PROTEIN,URINE NEGATIVE (NEGATIVE); UROBILINOGEN,URINE NORMAL MG/DL (0.0-1.0)
== END 2020-09-22 07:05 | disposition home or self-care (01) ==
LOC: EMR 05:39
DX: O98.811 Other maternal infectious and parasitic diseases complicating pregnancy, first trimester (principal); B37.3 Candidiasis of vulva and vagina; Z3A.08 8 weeks gestation of pregnancy; Z20.2 Contact with and (suspected) exposure to infections with a predominantly sexual mode of transmission
CPT/HCPCS: 36415; 80053; 81003; 83690; 84702; 85025; 96372; J0696; Q0144; Z7502; 99283

== ENCOUNTER 2020-10-27 04:31 | Emergency (ER) | payer MEDICAID ==
[~2020-10-27] VITALS: Ht 152.4 cm; Wt 79.4 kg
[~2020-10-27 04:31] MED LIST changes: +CLOTRIMAZOLE VA21 GM VAGIN
[2020-10-27 04:40] VITALS: BP 129/82
--- NOTE | 2020-10-27 04:40 | NUR ---
ED Nurse Note: pt walked into the ed due to headaches around voodoo area x 4days. No sob,vision changes , and dizzness. pt is A&Ox4, verbal and awake. vitals are stable.
[2020-10-27] MEDS ORDERED: Ketorolac 60mg Inj IM ONE (04:45)
[2020-10-27] MEDS ORDERED: CETIRIZINE HCL10 M1 PO (05:04)
[2020-10-27] MEDS ORDERED: TYLENOL EXTRA500 MG ORAL (05:04)
--- NOTE | 2020-10-27 05:04 | Emergency Room Report ---
History of Present Illness General Chief Complaint: Headache Source: Patient Present Illness HPI 34-year-old female multiple medical history presents to the emergency department with headache x4 days. She has been taking ibuprofen this is similar to previous headaches she has had in the past. Atraumatic. 600 mg p.o. daily every 24 hours with mild relief. No thunderclap onset. Denies fever, photophobia, neck stiffness, vision changes, dizziness, rash, nausea, vomiting, diarrhea, chest pain, shortness of breath, or weakness. She also endorses a dry cough and left ear irritation. She states "I feel like my sinuses are clogged" Headache is located in the frontal head, nonradiating. The patient's symptoms were gradual onset, severity was moderate, duration since 4 days. Quality: Aching, intermittent Past medical history: Denies Past surgical history: Denies Smoking: Denies Alcohol use: Denies Drug use: Denies Review of systems: CONST: No fevers or chills, No night sweats PULMONARY: No productive cough, No shortness of breath CARDIAC: No chest pain, No palpitations GI: No vomiting, No diarrhea , No melena_or_BRBPR : No dysuria, No hematuria, No discharge NEURO: No new_focal_weakness_or_numbness, No confusion, No vision changes 14 point Review of Systems is otherwise negative except per HPI Physical Exam: GENERAL: Awake_alert_ nontoxic, no acute distress Spo2 98% on RA -normal EYES: ++TTP over bilateral frontal sinus. Extraocular muscles are intact. Conjunctivae clear. Lids without swelling Visual acuity uncorrected: OS 20/20, OD 20/20, OU 20/20. No nystagmus. No proptosis. No hyphema or hypopyon ENT: No temporal skull tenderness to palpation. Erythematous left external auditory canal. No inner ear effusion. TM intact bilaterally External nose and ear normal_in_appearance. Oropharynx clear. Head_atraumatic, Moist_oral_mucosa NECK: No JVD. No meningismus. No thyromegaly. Supple. Trachea midline RESP: Normal respiratory effort. Symmetric rise. No stridor. Clear_to_auscultation_No_rales_No_wheezes CARDIAC: Regular rate and regular rhytm. No_significant pedal edema. ABDOMEN: Soft. Nondistended. Nontender_No_rebound_or_guarding. MSK: Normal muscle tone, without rigidity. Extremities without asymmetric deformity or swelling. SKIN: Warm and dry. No visible cyanosis or pallor. No petechiae NEUROLOGIC: Alert, oriented x3. Motor_and_sensation_grossly_intact. No truncal ataxia. Gait_normal Psych: Normal mood and affect, normal judgment and insight - COORDINATION OF CARE Case was discussed with: Patient Medical Decision Making/Plan: Differential for the patients headache includes primary headache (migraine, tension, cluster), sinus SOLIS, DOUBT subarachnoid hemorrhage, intracranial mass / tumor, meningitis, encephalitis, increased intracranial pressure, mastoiditis, dural venous thrombosis, temporal arteritis, acute angle closure glaucoma, among others. Patient is well-appearing, neurologically intact, afebrile, with no nuchal rigidity or petechiae. Headache not sudden and severe, not worst headache of life, no family hx of SAH, neurologically intact without any persistent vomiting. Not consistent with subarachnoid hemorrhage, dural venous thrombosis, increased intracranial pressure, or significant tumor at this time. Patient without meningismus, mastoid / sinus tenderness, altered mental status or seizure. Doubt subdural abscess, meningitis, encephalitis, mastoiditis. No significant trauma mechanism, not anticoagulated. No evidence of subdural / epidural hematoma. [place] CT head criteria negative. No temporal tenderness, jaw claudication or vision loss. Eyes are reactive, with normal appearing anterior chambers. No evidence of temporal arteritis or acute angle closure glaucoma. ED intervention included Toradol, Reglan, Benadryl with full relief of symptoms. Given the patients presentation, and normal neurologic exam, advanced imaging of the head with CT was not felt to be necessary or indicated and not pursued after weighing the risks and benefits of radiation. Suspect sinus headache versus tension headache. No red flags. No antibiotics indicated. Pertinent results reviewed with the patient. I educated the patient on the current treatment plan including the risks, benefits, and alternatives. I also discussed the extent and limitations of the current evaluation. The patient expressed understanding and agreement with plan. I recommended PMD follow-up within 1-2 days. Also advised that the patient return to the Emergency Department as soon as possible if they experience any new, persistent, or worsening symptoms. 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 Patient History Last Menstrual Period: jul 2020 Nursing Documentation-[facility] Past Medical History: No Stated History Physical Exam Vital Signs Date Time Temp Pulse Resp B/P (MAP) Pulse Ox O2 Delivery O2 Flow Rate FiO2 10/27/20 04:34 98.4 70 18 129/82 (98) 96 Room Air Sp02 EP Interpretation: reviewed, normal Medical Decision Making Diagnostic Impression: Primary Impression: Sinus headache Additional Impressions: Cough URI (upper respiratory infection) Last Vital Signs Date Time Temp Pulse Resp B/P (MAP) Pulse Ox O2 Delivery O2 Flow Rate FiO2 10/27/20 04:34 98.4 70 18 129/82 (98) 96 Room Air Disposition: HOME, SELF-CARE Admit Decision Time: 04:58 Condition: Stable Scripts Cetirizine Hcl (ZyrTEC*) 10 Mg Tab.chew 10 MG PO DAILY for Allergies for 10 Days, #10 TAB Prov: Celsa Garcia D.O. 10/27/20 Acetaminophen* (TYLENOL EXTRA STRENGTH*) 500 Mg Tablet 500 MG ORAL Q8H PRN for Prn Headache/Temp > 101, #30 TAB 0 Refills Prov: Celsa Garcia D.O. 10/27/20 Referrals: [facility],REFERRING (PCP) Patient Instructions: Sinus Headache Additional Instructions: Instructions for patient/automotive detailer: Follow up with your physician in 1-2 days. Follow-up with your doctor sooner if your condition requires a more timely clinical reevaluation. Return to the emergency department immediately if you feel that your condition is worsening or if you have any new or concerning symptoms. Review your discharge instructions and take any prescriptions given as instructed. [facility] PROVIDES FREE OR LOW-COST HEALTH SERVICES TO PEOPLE WHO CAN SHOW PROOF THAT THEY LIVE IN [facility]. TO FIND MORE CLINICS PARTNERED WITH THE [facility] TO PROVIDE SERVICE, PLEASE CALL . Celsa Garcia D.O. Oct 27, 2020 05:04
[2020-10-27 05:14] VITALS: BP 127/78
--- NOTE | 2020-10-27 05:27 | NUR ---
ER DISCHARGE NOTE: Patient is cleared to be discharged per ERMD, pt is aox4, on room air, with stable vital signs. pt was given dc and prescription instructions, pt was able to verbalize understanding, pt id band removed without complications. pt is able to ambulate with steady gait. pt took all belongings.ED Nurse Note:
== END 2020-10-27 05:14 | disposition home or self-care (01) ==
LOC: EMR 04:40
DX: R51.9 Headache, unspecified (principal); J06.9 Acute upper respiratory infection, unspecified
CPT/HCPCS: 96372; Z7502; 99283